=== PATIENT | male | born 1990 | race American Indian/Alaskan Native ===

== ENCOUNTER 2018-09-01 20:17 | Emergency (ER) | payer OTHER ==
[2018-09-01] MEDS ORDERED: ULTRAM PO ONE (22:46)
--- NOTE | 2018-09-01 23:47 | XRay Report ---
PROCEDURE: XR KNEE 3V RT TECHNIQUE: 3 views of the right knee: AP, oblique and lateral projections. HISTORY: Pain and swelling status post football injury. COMPARISONS: None available. FINDINGS: Suggested mild medial and prepatellar soft tissue swelling. No acute osseous abnormality. Small volume joint effusion. No degenerative change or erosive arthropathy. IMPRESSION: Suggested by medial and prepatellar soft tissue swelling, no acute osseous abnormality. This document is electronically signed by Filipe Lopez DO., September 01 2018 11:45:17 PM ET
--- NOTE | 2018-09-01 23:50 | Emergency Department Report ---
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 Witnessed: yes, by family Place Fall Occurred: street Loss of Consciousness: none Prolonged Down Time?: no Symptoms Prior to Fall: none Location - Extremities: Left: Hand, Right: Knee Severity: moderate Severity scale (0 -10): 5 Quality: aching Context: tripped/slipped Associated Symptoms: denies: numbness - Related Data Previous Rx's Medication Instructions Recorded Last Taken Type Cyclobenzaprine [Flexeril] 10 mg PO TID PRN #30 tablet 09/02/18 Unknown Rx Menthol/Camphor [[facility] [place] 1 applicatio TP QID PRN #1 tube 09/02/18 Unknown Rx Ointment] Naproxen 500 mg PO BID PRN #30 tablet 09/02/18 Unknown Rx Allergies Allergy/AdvReac Type Severity Reaction Status Date / Time No Known Allergies Allergy Verified 09/01/18 20:20 ED Review of Systems ROS: Stated complaint: RIGHT LEG INJURY Other details as noted in HPI Constitutional: denies: chills, fever Eyes: denies: eye pain, eye discharge, vision change ENT: denies: ear pain, throat pain Respiratory: denies: cough, shortness of breath, wheezing Cardiovascular: denies: chest pain, palpitations Endocrine: no symptoms reported Gastrointestinal: denies: abdominal pain, nausea, diarrhea Genitourinary: denies: urgency, dysuria Musculoskeletal: joint swelling. denies: back pain, arthralgia Skin: denies: rash, lesions Neurological: denies: headache, weakness, paresthesias Psychiatric: denies: anxiety, depression Hematological/Lymphatic: denies: easy bleeding, easy bruising ED Past Medical Hx - Past Medical History Previous Medical History?: No - Surgical History Past Surgical History?: No - Social History Smoking Status: Never Smoker Substance Use Type: None - Medications Home Medications: Home Medications Medication Instructions Recorded Confirmed Last Taken Type Cyclobenzaprine [Flexeril] 10 mg PO TID PRN #30 tablet 09/02/18 Unknown Rx Menthol/Camphor [[place] [place] 1 applicatio TP QID PRN #1 tube 09/02/18 Unknown Rx Ointment] Naproxen 500 mg PO BID PRN #30 tablet 09/02/18 Unknown Rx ED Physical Exam - General Limitations: No Limitations General appearance: alert, in no apparent distress - Head Head exam: Present: atraumatic, normocephalic - Eye Eye exam: Present: normal appearance - ENT ENT exam: Present: mucous membranes moist - Neck Neck exam: Present: normal inspection, full ROM. Absent: tenderness, meningismus, lymphadenopathy, thyromegaly - Respiratory Respiratory exam: Present: normal lung sounds bilaterally. Absent: respiratory distress, wheezes, stridor, chest wall tenderness - Cardiovascular Cardiovascular Exam: Present: regular rate, normal rhythm. Absent: systolic murmur, diastolic murmur, rubs, gallop - GI/Abdominal GI/Abdominal exam: Present: soft, normal bowel sounds - Rectal Rectal exam: Present: deferred - Extremities Exam Extremities exam: Present: normal inspection, full ROM, tenderness (right knee left thumb ), normal capillary refill. 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 Absent: swelling, abrasion, laceration, ecchymosis, deformity, crepidus, dislocation, erythema, amputation, nail avulsion, subungual hematoma Neuro motor exam: Present: wrist extension intact, thumb opposition intact, thumb IP flexion intact, thumb adduction intact, fingers 2-5 abduction intact Neurosensory exam: Present: 2-point discrimination, radial nerve intact, ulnar nerve intact, median nerve intact Vascular: Present: vascular compromise, normal capillary refill, radial pulse, brachial pulse, ulnar pulse. Absent: pulse deficit radial art, pulse deficit ulnar art, pulse deficit brachial art - Expanded Lower Extremity Exam Right Knee exam: Present: full ROM, tenderness (right medial suprapetalar tenderness to deep palpation no drawer no catch no click no pop pain with rotation joint is stable ), swelling, effusion, pain w/ pronation/supination, full knee extension. Absent: abrasion, laceration, ecchymosis, deformity, crepidus, dislocation, erythema, posterior draw sign, pain/laxity with valgus, pain/laxity with varus Lower Leg exam: Present: full ROM. Absent: tenderness, swelling Ankle exam: Present: normal inspection, full ROM. Absent: tenderness Foot/Toe exam: Present: normal inspection, full ROM. Absent: tenderness Neuro vascular tendon exam: Present: no vascular compromise. Absent: pulse deficit, motor deficit, sensory deficit, tendon deficit, significant pain with passive ROM of distal joint Gait: Positive: observed and normal - Back Exam Back exam: Present: normal inspection, full ROM. Absent: tenderness, CVA tenderness (R), CVA tenderness (L), muscle spasm, paraspinal tenderness, vertebral tenderness, rash noted - Neurological Exam Neurological exam: Present: alert, oriented X3, CN II-XII intact, normal gait, reflexes normal. Absent: motor sensory deficit - Psychiatric Psychiatric exam: Present: normal affect, normal mood - Skin Skin exam: Present: warm, dry, intact, normal color. Absent: rash ED Course Vital Signs 09/01/18 20:20 Temperature 98.4 F Pulse Rate 77 Respiratory 16 Rate Blood Pressure 134/84 O2 Sat by Pulse 96 Oximetry ED Medical Decision Making - Radiology Data Radiology results: report reviewed, image reviewed Ordering Physician: FLAKO WELSH NP Date of Service: 09/01/18 Procedure(s): XR knee 3V RT Accession Number(s): [id number] cc: FLAKO WELSH NP Fluoro Time In Minutes: PROCEDURE: XR KNEE 3V RT TECHNIQUE: 3 views of the right knee: AP, oblique and lateral projections. HISTORY: Pain and swelling status post football injury. COMPARISONS: None available. FINDINGS: Suggested mild medial and prepatellar soft tissue swelling. No acute osseous abnormality. Small volume joint effusion. No degenerative change or erosive arthropathy. IMPRESSION: Suggested by medial and prepatellar soft tissue swelling, no acute osseous abnormality. This document is electronically signed by Filipe Lopez DO., September 01 2018 11:45:17 PM ET Transcribed By: DT Dictated By: FILIPE LOPEZ DO Electronically Authenticated By: FILIPE LOPEZ DO Signed Date/Time: 09/01/182346 DD/ 16 TD/TT: 09/01/182316 Ordering Physician: FLAKO WELSH NP Date of Service: 09/01/18 Procedure(s): XR hand 3+V LT Accession Number(s): [id number] cc: FLAKO WELSH NP Fluoro Time In Minutes: PROCEDURE: XR HAND 3+V LT TECHNIQUE: 3 views of the left hand: AP, oblique and lateral projections. HISTORY: Football injury. COMPARISONS: None available. FINDINGS: Osseous mineralization is normal. No acute osseous abnormality. Joint spaces are preserved without significant degenerative change. No radiopaque foreign body or significant soft tissue injury is definitively noted. IMPRESSION: No acute osseous abnormality involving the left hand. This document is electronically signed by Filipe Lopez DO., September 01 2018 11:46:59 PM ET Transcribed By: DT Dictated By: FILIPE LOPEZ DO Electronically Authenticated By: FILIPE LOPEZ DO Signed Date/Time: 09/01/182347 DD/ 17 TD/TT: 09/01/182317 - Medical Decision Making X-ray left thumb normal soft tissue and no fracture , x-ray right knee small right medial effusion suprapatellar plan Louie wrap NSAIDs muscle relaxants analgesic balm rice therapy on 2-3 days patient is an was a steady gait with Louie wrap patient DC'd home in stable condition at this time. Critical care attestation.: If time is entered above; I have spent that time in minutes in the direct care of this critically ill patient, excluding procedure time. ED Disposition Clinical Impression: Thumb sprain Qualifiers: Encounter type: initial encounter Sprain of finger site: interphalangeal joint Laterality: left Qualified Code(s): S63.622A - Sprain of interphalangeal joint of left thumb, initial encounter Sprain of knee Qualifiers: Encounter type: initial encounter Involved ligament of knee: unspecified ligament Laterality: right Qualified Code(s): S83.91XA - Sprain of unspecified site of right knee, initial encounter Disposition: DC-01 TO HOME OR SELFCARE Is pt being admited?: No Does the pt Need Aspirin: No Condition: Stable Instructions: Finger Sprain (ED), Knee Sprain (ED), Knee Exercises (GEN), RICE Therapy (ED) Prescriptions: Cyclobenzaprine [Flexeril] 10 mg PO TID PRN #30 tablet PRN Reason: Muscle Spasm Naproxen 500 mg PO BID PRN #30 tablet PRN Reason: pain Menthol/Camphor [[place] [place] Ointment] 1 applicatio TP QID PRN #1 tube PRN Reason: pain Referrals: PRIMARY CARE,MD [Primary Care Provider] - 3-5 Days Forms: Work/School Release Form(ED) Time of Disposition: 00:56
[2018-09-02 01:57] VITALS: BP 126/72
== END 2018-09-02 01:10 | disposition home or self-care (01) ==
LOC: ED 20:17
DX: S63.622A Sprain of interphalangeal joint of left thumb, initial encounter (principal); S83.91XA Sprain of unspecified site of right knee, initial encounter; W18.30XA Fall on same level, unspecified, initial encounter; Y93.61 Activity, american tackle football; Y92.89 Other specified places as the place of occurrence of the external cause; Y99.8 Other external cause status
CPT/HCPCS: 99283